=== PATIENT | female | born 1945 | race African-American/Black ===

== ENCOUNTER 2020-01-11 23:30 | Inpatient (IN) | payer OTHER ==
[2020-01-12 00:35] VITALS: BP 192/76
[2020-01-12] MEDS ORDERED: LOSARTAN POTASS50 MG PO (00:44)
[2020-01-12] MEDS ORDERED: CIPRO500 M1 PO (00:46)
--- NOTE | 2020-01-12 02:31 | NUR ---
Patient admitted from [facility] ED by EMS tian. Patient presented to [facility] ED by PD due to trespassing on property. Per medical record: Patient lost her home in 09/2019 due to forclosure. Patient has been squatting in the home since. Home was sold and patient had to be removed several times from the home. Patient originally was entering the home with [place]. [place] locks were changed. Patient arrived the next day and entered by garage doorkeeper. PD has been involved multiple times in removing her from the property. Patient did become verbally/physically aggressive with the homeowner when asked to leave. Patient is reporting depression. Patient having delusional ideation that she remains living at this time. Patient has been residing at a hotel and using a rental car for transportation. Patient has recently been asking strangers for rides and walking to her old home not dressed appropriately for weather. Son currently lives in [place] and is working on obtaining DPOA for patient. Son did sent an affidavit of his concerns. Son reports patient received the diagnosis of paranoid schizophrenia 8 years ago. Patient was diagnosed with a DVT to left lower extremity in Dec 2019 and was also sent to [facility] on a 96 hour hold. Patient irritable and agitated upon arrival. Resistant to admission. Alert and oriented to person. Patient diagnosed with a UTI and currently receives PO abx tx. Patient did inquire if she was admitted to be evaluated to see if she was "competent". Patient notified that was up to the doctors. Patient has perplexed and suspicious look. Denies pain or discomfort. Denies SI/HI/AH/VH. Denies depression. Reports anxiety because of being in the hospital and not at home. Would not rate anxiety. When asked where her home was, she did state that she is currently living in a hotel. Patient brought several personal belongings with her and is upset she is not able to keep them all in her room. Repetitive, disorganized thoughts and flight of ideas. Difficulty focusing on one task or subject. Admission orders obtained from Dr. Constantino. ALEJANDRA Moyer, evaluated patient and placed orders and testing due to past dx of DVT and some records obtained of recent CT of the head. Patient resting quietly in bed at this time.
[2020-01-12 08:16] VITALS: BP 153/79
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
--- NOTE | 2020-01-12 12:10 | NUR ---
Up ambulating in unit without s/o distress. Alert and orientated to person, time but not to place. Completed screening for MRI but repeatedly asked why she had to have another xray of her head since one was done yesterday. Requesting additional information and to talk with doctor to discuss why MRI needed to be done. ALEJANDRA Moyer paged and discussed with Dr. Constantino. Dr. Constantino states he will discuss with Dr. Bassett, MRI cancelled. Attempting to obtain records from [facility] regarding DVT. Ultrasound of lower extremities cancelled by Dr. Constantino. Breath sounds clear t/o, bilaterally equal. Reg HR auscultated. Color pink with brisk capillary refill and palpable peripheral pulses. Independent with voiding. Hypoactive bowel sounds over soft, rounded abdomen. Regular, steady gait. 1220 Pt. informed of MRI and ultrasound being cancelled. Repeatedly asking why she is here. States that she does not think she is incompetent. States she feels like she is a prisoner. I stated that she is here voluntarily and she responded that she did come here on her own. After multiple attempts she was able to state that she did enter into her house (with new owners) with her keys once. Dr. Constantino notified that she wanted to speak with him r/t voluntary admission.
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
[2020-01-12 19:31] VITALS: BP 153/56
[2020-01-13 00:08] LABS: GLYCOHEMOGLOBIN (HGB A1C) 7.2 % (4.8-5.6)
--- NOTE | 2020-01-13 00:42 | NUR ---
Care assumed of patient at 1915: Patient sleeping in bed at start of shift. Patient easily aroused to voice. Patient alert and oriented to person and place. Patient disoriented to time and situation. Patient has suspicious, perplexed look. Calm, cooperative. Patient having several complaints about water. Reporting that she can't have ice, she doesn't like the cup, she doesn't like the way it tastes. Reports that she needs her 4 oz bottles from home because she drinks 2 in the morning and 2 in the afternoon. Some difficulty focusing during assessment. Patient remembers that she does have a UTI and needs to increase fluid intake. Continues on PO abx tx. No s/s of adverse effects noted at this time. Denies SI/HI/AH/VH. Patient did not speak about her house or current homeless status. Patient has not asked when she will be able to go home. No agitation or aggression observed. No irritability observed. Denies depression and anxiety. Denies pain or discomfort. Patient up isa, steady gait, good balance. No obvious delusional or paranoia behaviors. Patient isolated self to her room this evening. Declined to join peers in day room for socialization and snack. Took HS medication whole without difficulty. Patient has been sleeping most of the shift thus far.
[2020-01-13 09:18] VITALS: BP 135/76
--- NOTE | 2020-01-13 11:07 | NUR ---
AMY spoke with Liza Romero [phone] order appointed attonrney for the guardianship. Amy provided a brief update and requested the paperwork for the court order via email. Amy provided Liza with the pt code.
--- NOTE | 2020-01-13 11:48 | NUR ---
HEAVY DUTY MECHANIC met with Nora to complete recreational assessment. Patient was fixated on conversation with psyhiatrist that took place right before this interaction. Pt became defensive and accusatory of HEAVY DUTY MECHANIC regarding her score on her SLUMS and potential dementia diagnosis. Assessment was not completed.
[2020-01-13 12:59] VITALS: BP 135/76
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
--- NOTE | 2020-01-13 15:46 | NUR ---
ASSUMED CARE AT 0700 THIS MORNING. PT. UP, DRESSED AND ON THE UNIT FOR BREAKFAST. SHE TOOK HER MEDICATIONS WITHOUT DIFFICULTIES. SHE IS PLEASANT AND COOPERATIVE WITH STAFF. AFTER LUNCH SHE WAS STANDING AT THE END OF ONE HALLWAY. SHE STATED THAT A DARK SKINNED LADY TOLD HER THEY WERE GOING TO TALK TO HER. SHE HAD NOT SEEN THIS WOMAN SINCE THAT TIME AND WAS CONFUSED TO WHERE TO LOOK FOR HER. WHEN INFORMED THAT SHE DOES NOT NEED TO STAND AT THE END OF THE ARGUETA WAITING AND STAFF WOULD LET HER KNOW IF SOMEONE COMES TO SEE HER. SHE WAS EXCEPTING OF THIS. DENIES SI/HI OR AVH TODAY.
[2020-01-13 15:50] LABS: FOLIC ACID 17.3 ng/mL (8.6-58.9)
--- NOTE | 2020-01-13 16:11 | NUR ---
SW verified with pt's son that pt's items such as her purse were at the hospital; he was concerned she had left everything in her rental care. SW team will continue to follow pt during her stay on this unit.
[2020-01-13 21:00] VITALS: BP 130/44
--- NOTE | 2020-01-14 00:25 | NUR ---
Assumed care of patient this pm shift. Patient was in her room resting when I arrived with her medications. Patient is in good spirits but questions when she might be able to go home and how long the stay will be. Patients affect is blunted. Patient denies hi/si. Patient denies pain. Patient is easy to redirect. Patient is compliant with cares and non-aggressive. Patients assessment shows clear breath sounds, active bowel sounds, and s1 s2 heard with auscultation. Patient takes medications whole. Patient ambulates without assistance. Vital signs are stable. We will continue to monitor.
[2020-01-14 08:37] VITALS: BP 141/63
--- NOTE | 2020-01-14 11:45 | NUR ---
Ambulating in unit without s/o distress. Alert and orientated to person and place. States she wants to get out of here richard. Asks alot of questions. Able to recognize meds. Denies SI/HI. Breath sounds clear t/o, bilaterally equal. Reg HR auscultated. Color pink with brisk capillary refill and palpable peripheral pulses. Voiding independenly. Active bowel sounds over soft, rounded abdomen. Reports she had a BM this AM. Reg, steady gait. Testing done by OT after breakfast. Given a copy of her Vitamen D results per her request. Sitting at table without s/o distress.
--- NOTE | 2020-01-14 16:04 | NUR ---
Yesterday pt met with her court appointed manager e learning in the group room. SW sent an email to pt's manager e learning Alex Arboleda that the munitions factory worker faxed the guardianship letter from the doctor this morning. Pt's psych doctor mentioned that pt said she has bills in her locker she needs to mail off. SW asked the REEL TENDER's to review her locker and see if there are bills. SW team will continue to follow pt during her stay on this unit.
[2020-01-14 20:00] VITALS: BP 141/57
[2020-01-14 21:59] VITALS: BP 141/57
--- NOTE | 2020-01-15 00:29 | NUR ---
1929 RESUMMED CARE FROM DAY SHIFT, PATIENT IN ROOM LYING QUIET IN BED. PATIENT WOULD NOT TAKE HER ELIQUIS STATING SHE DID NOT NEED THIS MEDICATION. PATIENT BELIEVES SHE IS BEING HELD HERE AGAINST HER WILL AND WANTS TO LEAVE. PATIENT DENIES SI/HI/AH/VH AT PRESENT, PATIENT IS CONFUSED AND I LET DR ELIZALDE KNOW PATIENT REFUSES THE ELIQUIS. PATIENT QUIET CALM WILL CONTINUE TO MONITOR PATIENT FOR SAFETY AND BEHAVIORS.
[2020-01-15 09:31] VITALS: BP 134/65
--- NOTE | 2020-01-15 11:30 | NUR ---
Pleasant, firm about not waanting the Memantine morning med as "it might affect her brain and wanted to consult her Primary Care Doctor before taking it." She has been alert and cooperative otherwise. She mostly keeps to herself without initiating conversation with her unit peers. She is neat and well kempt. Her main focus is getting out of this facility to have her freedom back so she can pay her bills.
[2020-01-15 15:56] VITALS: BP 134/65
--- NOTE | 2020-01-15 16:34 | NUR ---
Nora's son from [place] called and spoke with this nurse while she was in a morning group. He was updated on the morning team meeting and Nora's refusal to take the Memantine this AM. Her son was given the suggestion to talk with the Government Affairs Director and Doctor about when to discuss guardianship proceedings. Son says he plans to call her during visiting hour this afternoon.
[2020-01-15 21:33] VITALS: BP 135/45
[2020-01-15 22:33] VITALS: BP 135/45
--- NOTE | 2020-01-16 01:17 | NUR ---
Pt has been in bed since start of shift. Respirations even and non-labored during first visual assessment. At approx 2100 pt refused to take Eliquis but did take other pill. Pt. took pill whole with thin liquids. No choking or coughing noted. Pt. cooperative with assessment and voices no complaints of pain and no s/s of pain noted.
[2020-01-16 09:06] VITALS: BP 142/65
[2020-01-16 10:02] VITALS: BP 142/65
--- NOTE | 2020-01-16 11:33 | NUR ---
1035 RESUMMED CARE FROM OVERNIGHT SHIFT THIS AM, PATIENT IN DAY ROOM TALKING WITH ANOTHER PATIENT. PATIENT ATE BREAKFAST AND WAS GIVING ME A HARD TIME ABOUT TAKING SOME OF HER MEDICATION. TAO THE APPLICATION SYSTEMS ENGINEER TALKED WITH PATIENT AND ASKED ME TO PRINT LITATURE ABOUT THE MEDICATIONS. AFTER PATIENT READ THE INFORMATION SHE TOOK HER BLOOD THINNER AND MENAMTINE. PATIENT IS VERY CONFUSED AT TIMES AND INSIST SHE NEEDS TO LEAVE HERE SO SHE CAN PAY HER BILLS. PATIENT IS LESS ISOLATIVE AND INTERACTS WITH ONE PATIENT. WILL CONTINUE TO MONITOR PATIENT FOR SAFETY.
[2020-01-16 19:26] VITALS: BP 152/73
[2020-01-16 20:40] VITALS: BP 152/73
--- NOTE | 2020-01-17 05:15 | NUR ---
At start of shift patient was already in bed with lights off and door shut. Upon assessment and with administration of medications pt. became argumentative about her care and the medications that are ordered for her. Education done regarding Eliquis and Cipro. Pt. acknowledged understanding and took pills by mouth whole with thin liquids. No choking or coughing noted with thin liquids.
--- NOTE | 2020-01-17 05:18 | NUR ---
Pt. slept quietly through the night without incident and no c/o pain and no signs or symptoms of distress noted. Respirations even and non-labored.
[2020-01-17 06:24] VITALS: BP 120/55
--- NOTE | 2020-01-17 18:15 | NUR ---
PATIENT OUT TO DINING ROOM INTERMITTENTLY THIS SHIFT. INTERACTED WITH OTHER PATIENTS AT MEAL TIMES. SPENDS ALONE TIME IN ROOM FREQUENTLY IN BETWEEN MEALS. PARTICIPATED IN GROUP. REFUSED MEMANTINE THIS MORNING. STATED THAT SHE WANTS A SECOND OPINION FROM A PRIVATE DRJosé WHEN SHE DISCHARGES. STATES THAT SHE DOES NOT BELIEVE SHE HAS MEMORY ISSUES. TOOK ALL OTHER MEDS AFTER EDUCATION PROVIDED. SUSPICIOUS OF STAFF WHEN GIVING MEDS, SHOWED PATIENT THAT MEDICATION REFUSED WAS NOT IN HER MED CUP. AOX3, FORGETFUL. UP WITH A STEADY BALANCED GAIT.
[2020-01-17 19:36] VITALS: BP 129/55
--- NOTE | 2020-01-18 03:49 | NUR ---
ASSUMED PT CARE AROUND 1914. AXOX3. VSS. NO S/S ACUTE DISTRESS NOTED OR REPORTED AT THIS TIME. WILL CONT TO MONITOR FOR ANY CHANGES IN CONDITION.
[2020-01-18 07:57] VITALS: BP 148/52
--- NOTE | 2020-01-18 09:47 | NUR ---
0700 ASSUMED CARE OF PATIENT. PATIENT SITTING AT TABLE DENIES NEEDS AT THIS TIME. 0730 NO C/O PAIN DENIES SI/HI/AH/VH, NO ANXIETY OR DEPRESSION, PATIENT IS CALM AND COOPERATIVE. GOAL FOR TODAY IS TO DO WHAT SHE NEEDS TO TO GET RELEASED. PATIENTS CONCERN IS TO GET DISCHARGED. PATIENT REFUSES HER MEDICATION (MEMANTINE) AND REQUESTS A SECOND OPINON BEFORE SHE TAKES THAT MED. DR WESLEY NOTIFIED. WILL CONTINE TO OBSERVE FOR BEHAVIORS.
[2020-01-18 19:48] VITALS: BP 129/97
[2020-01-18 23:09] LABS: SYPHILIS AB Non Reactive (Non Reactive)
--- NOTE | 2020-01-19 01:26 | NUR ---
Care assumed of patient at 1915: Patient laying in bed at start of shift. Patient easily aroused. Patient alert and oriented to person and place. Patient confused and forgetful. Patient asking to go home and that she is leaving tomorrow. Patient cooperative with nursing assessment. Denies pain or discomfort. Patient denies SI/HI/AH/VH. Patient paranoid about her room door being cracked open. Required education on need of being able to monitor her throughout the night. No aggression observed. Patient has 1+ pitting edema to bilateral lower extremities. Patient told nurse about how she has a DVT "in the muscle tissue, which is a weird place for it to be, but I will take my medications". Patient took HS Eliquis without difficulty. Declined HS snack. Patient has been restless with broken sleep noted. Will continue to monitor.
[2020-01-19 08:53] VITALS: BP 157/64
[2020-01-19 09:31] VITALS: BP 157/64
--- NOTE | 2020-01-19 10:13 | NUR ---
1013 RESUMMED CARE FROM OVERNIGHT SHIFT THIS AM, PATIENT IN ROOM LYING QUIET IN BED. I TOLD PATIENT THAT IT WILL BE BREAKFAST SHORTLY AND TO GET UP AND DO HYGIENE. PATIENT ATE BREAKFAST TOOK MEDICATION WITHOUT INCIDENCE; PATIENT BOWEL SOUNDS PRESENT ABDOMEN SOFT AND ROUND. PATIENT LUNGS CLEAR DENIES SI/HI/AH/VH AT PREESENT. PATIENT STATES SHE DOES NOT WANT TO GO TO A SHELTER. SHE STATES SHE IS ABLE TO TAKE CARE OF HERSELF AND WANTS TO TALK WITH PARKING METER ATTENDANT. PATIENT CALM COOPERATIVE WILL CONTINUE MONITOR PATIENT FOR BEHAVIORS AND SAFETY.
--- NOTE | 2020-01-19 11:40 | NUR ---
Date of Admission: 01/11/20 Date of Activity Therapy Assessment: 01/14/20 Activity Goal: Reality Orientation, Impulse Control Initial Goal: 2 Group activities/day Weekly progress towards goal: Did not achieve goals Group participation level: Improving Behaviors observed: Patient very reluctant to participate in groups at beginning of stay, which has since improved slightly though patient is still not achieving goal as she is unaccepting of diagnosis. Patient is reserved and guarded in social interactions. Plan: No change towards goal
--- NOTE | 2020-01-19 12:41 | NUR ---
Sw completed a chart review and have not been able to verify what date is the hearing for guardianship
--- NOTE | 2020-01-19 12:44 | NUR ---
JUAN RAMON called Liza zimmerman left a VM requesting a date for the guardianship hearing.
[2020-01-19 19:46] VITALS: BP 147/47
--- NOTE | 2020-01-19 21:36 | NUR ---
Care assumed of patient at 1915: Patient laying in bed at start of shift. Patient alert and oriented to person and place. Patient confused and forgetful. Patient labile. Originally calm, pleasant and cooperative until current situation of admission was discussed. Patient then became irritable, agitated and angry. Patient stated that we are keeping her against her will and she has never been in the hospital for this long of a period. States that she needs to return to home because she has business to care for. States that she is able to make her own decisions and doctors are making up diagnoses to keep her here. Patient denies SI/HI/AH/VH. No physical aggression shown. Patient did tell nurse to get out because she is not a doctor. Patient encouraged to speak with the doctor and adoption social worker regarding her concerns tomorrow. Patient declined HS snack. Isolated self to her room this shift. Patient took HS medication without difficulty this shift. Patient denies pain or discomfort. 1+ pitting edema present to bilateral lower extremities. Patient resting quietly in bed at this time.
[2020-01-20 08:42] VITALS: BP 121/59
--- NOTE | 2020-01-20 11:06 | NUR ---
JUAN RAMON spoke with Liza Romero and JUAN RAMON reported that pt is having some difficulties that could be the result of being too long on inpt psych and that Liza offered to send an email to the court and request expediated dates. She also stated that there would be a server engineer to come to see pt this week to serve her the legal documents about her guardianship.
--- NOTE | 2020-01-20 11:19 | NUR ---
Nutrition: pt admitted with AMS and seen due to LOS. PMH: HTN, DVT, schizophrenia, dementia, No hx DM however A1C 7.2. BG 101-132. On carb controlled diet. Pt eating 100% meals. Pt unsure of her UBW but thinks she has been gaining weight. Noted pt has been homeless since october-home sold at [employer]. Was disruptive and aggressive this am requiring IM Noelle. Pt was very preoccupied with incident this am. Likes all the meals here. On vitamin D, B12 supplementation. Vitamin D level-8.6. CM working on discharge location. Not appropriate for DM education at present but did offer basic tips. Place as low nutrition risk.
--- NOTE | 2020-01-20 11:33 | NUR ---
GUARDED AND DEFENSIVE AT TIMES DURING WITH THIS RN. FOCUSED ON INCIDENT THIS AM WHERE SHE BECAME AGITATED THAT SHE WAS ASKED TO WAIT TO SHOWER -ARGUMENTATIVE WITH NURSING STAFF DESPITE BEING REDIRECTED TO DIFFERENT TOPIC-SOME MILD DELUSIONS O0F PERSECUTION STATING "THAT LADY TOLD ME SHE SHOWERED IN THE MORNING" IS VISIBLE AT MEALS AND ATTENDS GROUP BUT MINIMAL OBSERVED PARTICIPATION OR SOCIALIZATION WITH PEER GROUP. GAIT IS STEADY WITHOUT ASSISITVE DEVICES. DENIES C/O PAIN/DISCOMFORT.DYSPHORIC MOOD. FOCUSED ON BEING HERE AT HOSPITAL "TO SEE IF I'M COMPETENT-NO OTHER REASON-I DON'T HAVE TROUBLE LIKE THESE OTHER PEOPLE"VS STABLE. APPETITE GOOD. DENIES SI/SH/HI
--- NOTE | 2020-01-20 17:35 | NUR ---
UPON ARRIVAL TO FLOOR NOTED TO SMELL STRONGLY OF URINE-CLOTHING WET FRO MMIDCHEST TO KNEES WITH URINE-REFUSING TO CHANGE CLOTHING STATING "I WANT THOSE"-DR ELIZALDE CONTACTED,SECURITY CONTACTED-[facility] 15MG GIVEN IM IN LVG WITH ASSIST OF SECURITY AND 3 STAFF. DURING PERINEAL CARE SKIN ASSESSMENT COMPLETED-NO OPEN AREAS NOTED PURPLE COLORED RASH /BUMPS TO INNER THIGHS BILAT. NO REDNESS/IRRITATION OR OPEN AREAS NOTED. PER DR ELIZALDE PT NOT OF CAPACITY TO SIGN CONSENT TO TREAT D/T SEVERE COGNITIVE DEFECITS-MD INDICATING DOES NOT WANT 96 HOUR HOLD AND TO ADMIT TO UNIT VIA [facility]. DR ELIZALDE AND THIS CASING TESTER CONTACTED NUMBER IDENTIFIED BY ER GUARDIAN [id number] ANSWER BUT ANSWERING MACHINE IDENTIFIES OFFICE OF ELISEO HERNANDEZ STAFF ENGINEER. MESSAGE LEFT TO RETURN CALL LUIZ. PT UNABLE TO ANSWER MAJORITY OF QUESTIONS DURING ADMIT INTERVIEW-SEXUALLY PREOCCUPIED TELLING PRODUCT SAFETY OFFICER THAT HE WANTED TO PUT A BABY IN HER AND WHEN ASKED ABOUT ANY PREVIOUS MEDICAL CARE OR DURGERIES STATES "THEY CUT MY SUSANA AND BALLS OFF" THEN PROCEDED TO LAUGH LOUDLY. APPROPRIATE FOR
--- NOTE | 2020-01-20 17:57 | NUR ---
SW received an email from pt's son asking for help with placement. JUAN RAMON told him she will provide him with a listing; she just needs to know what area he would like pt to reside in. She also told him that the court is needing more information from him in order to set a court date. SW team will continue to follow pt during her stay on this unit.
[2020-01-20 19:54] VITALS: BP 145/61
[2020-01-20 21:43] VITALS: BP 145/61
--- NOTE | 2020-01-20 23:04 | NUR ---
2209 RESUMMED CARE FROM DAY SHIFT, PATIENT IN ROOM LYING DOWN QUIET. WHEN A NEW ADMIT WAS PUT INTO PATIENT'S ROOM SHE BECAME DISGRUNTLE. SHE ASKED IF SHE COULD HAVE A ROOM WITHOUT A ROOMMATE WE MOVED PATIENT TO 525A. WE TOLD PATIENT THAT WE COULD ACCOMMODATE HER BECAUSE THERE WAS ONLY ONE BED IN THE ROOM. PATIENT TOOK MEDICATION WITHOUT INCIDENCE, PATIENT ABDOMEN SOFT ROUND BOWEL SOUNDS PRESENT LUNGS CLEAR. PATIENT STATES SHE DOES NOT WANT TO GO TO A LONG TERM; SHE STATES SHE CAN CARE FOR HERSELF. PATIENT NOT RECEPTIVE WHEN YOU DISCUSS THE REASON WHY SHE HAS TO HAVE SOMEONE HELP HER WITH DAILY AFFAIRS. WILL CONTINUE TO MONITOR PATIENT FOR BEHAVIOR AND SAFETY.
[2020-01-21 06:14] LABS: HEMATOCRIT 40.8 % (37.0-47.0); HEMOGLOBIN 13.2 gm/dL (12.0-15.0); MCHC 32.4 g/dL (28.0-37.0); MCV 89.5 fL (80.0-100.0); RBC 4.56 mil/uL (4.20-5.00); RDW 13.8 % (10.5-14.5); WBC 6.7 thou/uL (4.0-11.0)
[2020-01-21 06:46] LABS: CALCIUM 8.9 mg/dL (8.5-10.1); CREATININE 0.8 mg/dL (0.6-1.0); MAGNESIUM 2.2 mg/dL (1.8-2.4); POTASSIUM 4.3 mmol/L (3.5-5.1)
[2020-01-21 07:52] VITALS: BP 132/48
--- NOTE | 2020-01-21 12:22 | NUR ---
Sitting in room by herself with lights off. Alert and orientated X3. Wants to be discharged. Denies SI/HI. Ambulates with regular, steady gait. Conversive and helpful with peers when in the dining room. Breath sounds clear t/o, bilaterally equal. Reg HR auscultated. Color pink with brisk capillary refill and palpable peripheral pulses. +1 nonpitting edema in lower extremitites. Independent with voiding. States she had bowel movement today. Active bowel sounds over soft, rounded abdomen.
--- NOTE | 2020-01-21 13:07 | NUR ---
JUAN RAMON received a call from pt's son's lawyer real estate Alex asking about the process to have pt served guardianship docs. JUAN RAMON advised that he can have the claims processor contact SW so tthat she knows when he will arrive and can direct him to Leobardo Lacey. After tower observer has visited with Leobardo Lacey, then he can come serve pt. Alex said the claims processor's name is Solan Martinez and will call JUAN RAMON when he has finished getting him appointed as the claims processor. JUAN RAMON team will continue to follow pt during her stay on this unit.
[2020-01-21 19:34] VITALS: BP 136/55
--- NOTE | 2020-01-21 21:39 | NUR ---
1900 ASSUMED CARE OF PT AFTER REPORT 2028 ASSESSMENT COMPLETED, SEE CHARTING, PT ANSWERING QUESTIONS APPROPRIATEL AFFECT APPROPRIATE TO MOOD, PT STATES SHE WOULD LIKE TO SLEEP. DENIES SI/HI OR HALLUCINATIONS, WILL CONTINUE WITH FREQUENT MONITORING
[2020-01-22 07:42] VITALS: BP 146/63
--- NOTE | 2020-01-22 11:01 | NUR ---
0700 assumed care of patient, patient sitting at table at that time. 0820 PATIENT EATING BREAKFAST AT THAT TIME. PATIENT CALM AND PLEASANT DENIES PAIN, DENIES SI/HI/AH/VH, DENIES ANXIETY AND DEPRESSION. PATIENTS GOAL IS TO EXERCISE AND GO HOME AND USE HER TREADMIL. NO CONCERNS VOICED. PATIENT IS QUIETLY SITTING AT TABLE. DNIES NEEDS.
--- NOTE | 2020-01-22 15:09 | NUR ---
5315 - 8750 The morning group was lead by Celsa in dietary. Nora attended and was an active participatant in group.
[2020-01-22 19:59] VITALS: BP 123/52
[2020-01-22 23:28] VITALS: BP 123/52
--- NOTE | 2020-01-23 01:35 | NUR ---
Pt was already in bed at start of shift. Pt. took evening meds without complaint, without arguing, without questioning and without any swallowing difficulty. Pt. took meds whole with thin liquids. Pt denies any pain or distress and no signs or symptoms of either noted.
--- NOTE | 2020-01-23 04:01 | NUR ---
Patient reported to the nurses station at approximately 0400. Patient asked nurse if her discharge papers were ready. Nurse told patient she would need to speak with the doctor when he rounds later today. Re-oriented to current time. Blunted, perplexed affect. Patient then stating "well that is not what they told me". Patient then went back to her room with no further issue.
[2020-01-23 08:03] VITALS: BP 126/59
--- NOTE | 2020-01-23 14:22 | NUR ---
Up ambulating in unit without s/o distress. Focused on being independent and wanting to get discharged. Reg, steady gait. Alert and orientated X3, helpful with peers, conversant in the day room. Denies SI/HI. Breath sounds clear t/o, bilaterally equal. Color pink with brisk capillary refill and palpable peripheral pulses. +1 nonpitting edema in lower legs. Independent with voiding. Active bowel sounds over soft abdomen. States last BM was yesterday. Participating in groups. Compliant with meds, asking appropriate questions.
[2020-01-23 20:05] VITALS: BP 175/95
--- NOTE | 2020-01-23 21:10 | NUR ---
Care of patient assumed at 1915: Patient resting in her bed at start of shift. Patient approached in room for nursing assessment. Patient alert and oriented x3, disoriented on current situation. Some irritability noted but was fairly cooperative. Blunted affect, labile mood. Patient refused HS medication. Patient states that she has had 2 episodes of loose stools, one of which was incontinent and she had to clean herself up. Patient states that she is not wanting to drink anymore water for a fear of having another loose stool. Stool was not observed. Patient stated that she never refuses medications but she feels like one dose of Eliquis will not hurt her. Despite all education provided regarding dehydration with loose stools, she continues to refuse. Nurse left room. Approximately 1 hour later, patient came out of room, angry, moving briskly to the nurses station, pointing, stating she was taking a mental picture of all nurses faces, stating "call the guards, I'm not afraid of you!", stating "it is illegal to experiment on people!". Patient marched back to her room and is currently seated on bed.
[2020-01-24 08:51] VITALS: BP 133/68
[2020-01-24 13:43] VITALS: BP 133/68
--- NOTE | 2020-01-24 16:44 | NUR ---
ASSUMED CARE AT 0700 THIS LANCE. PT. UP AMBULATING AROUND. SHE HAS BEEN PLEASANT AND COOPERATIVE WITH STAFF/PEERS. SHE TOOK ALL HER MEDICATIONS WITHOUT DIFFICULTIES. NO PROBLEMS NOTED.
[2020-01-24 19:30] VITALS: BP 123/54
--- NOTE | 2020-01-25 04:59 | NUR ---
ASSUMED CAER OF PT AT 1900HRS. ASSESSMENTS CHARTED. PT IS UP AD NATALIYA WITH A SLOW BUT STEADY GAIT. PT WAS ABLE TO GET COMFORTABLE AND SLEEP PART OF THE SHIFT. PT WOKE UP AROUND 0330HRS AND WAS DELUSIONAL, THINKING THE NURSE TOLD HER THAT IT WAS OK FOR HER TO GO HOME AT THIS HOUR. PT DENIED SI/HI/AH/VH. VSS AND NO S/S OF ACUTE DISTRESS. WILL CONTINUE TO MONITOR.
[2020-01-25 07:59] VITALS: BP 135/61
--- NOTE | 2020-01-25 09:19 | NUR ---
SW completed chart review and pt seems to be making gains. Still pending guardianship with her son.
--- NOTE | 2020-01-25 10:47 | NUR ---
0700 ASSUMED CARE OF PATIENT. PATIENT SITTING IN DAYROOM WATCHING TV. DENIES NEEDS AT THAT TIME. PATIENT ATENDS GROUP THIS AM
--- NOTE | 2020-01-25 15:46 | NUR ---
JUAN RAMON followed up with pt's son glove operator Alex and asked if the hearing date had been set yet via email. SW team will continue to follow pt during her stay on this unit.
--- NOTE | 2020-01-25 16:31 | NUR ---
PATIENT BLOOD SUGAR WAS 67 APPLE JUICE GIVEN AND BS RECHECKED WITH BS 66. PATIENT IS ASYMPTOMATIC AT THIS TIME. WILL RECHECK AFTER DINNER.
--- NOTE | 2020-01-25 18:25 | NUR ---
1745 BL RECHECKED WITH 77 RESULT. PT IS ASYMPTOMATIC AT THIS TIME WILL REPORT TO ONCOMING SHIFT AND CONTINUE TO WATCH.
[2020-01-25 19:30] VITALS: BP 141/65
--- NOTE | 2020-01-26 04:51 | NUR ---
Assumed care of pt @ 1900. Pt calm et cooperative this shift. Took medications whole without difficulty. Ambulates the halls ad isa with steady gait. Isolates in room most of shift. Denies SI/HI @ present time. VSWNL. Health assessment with no abnormalities noted at present time. Currently resting in bed with eyes closed. Will continue to monitor per protocol.
[2020-01-26 09:10] VITALS: BP 126/72
--- NOTE | 2020-01-26 11:53 | NUR ---
Up ambulating t/o unit with regular, steady gait. No s/o distress. Alert and orientated X4. Wants to know why she can't go home. Denies SI/HI. Dr. Constantino aware that she wants to talk to him about discharge. Calm, cooperative, compliant. Breath sounds clear t/o, bilaterally equal. Reg HR auscultated. Color pink with brisk capillary refill and palpable peripheral pulses. Fingertips slightly dusky and cool with brisk capillary refill. No edema noted. Independent with voiding. Active bowel sounds over soft, rounded abdomen. BG 82, Metformin dced per order.
--- NOTE | 2020-01-26 12:15 | NUR ---
JUAN RAMON and Dr. Constantino spoke with pt and explained that her court date is likely not until March, and that the hospital will need to d/c her before that. JUAN RAMON and Dr. Constantino expressed the importance that pt stay away from the house she formerly lived in. She initially said she still has a herrera so she still has rights. Then she said she will go to the post office and ask for her mail. SW offered to have her fill out a change of address via internet while she is on the unit. Pt did not identify if that is something she wants to do; she instead kept talking about going to the post office. JUAN RAMON, Dr. Constantino, and pt contacted and provided an update. Dr. Constantino suggested respite for pt. said he will look into respite care for pt and get back with JUAN RAMON. SW team will continue to follow pt during her stay on this unit.
[2020-01-26 19:16] VITALS: BP 134/50
[2020-01-26 23:16] VITALS: BP 134/50
--- NOTE | 2020-01-27 01:44 | NUR ---
Assumed care at change of shift. Pt was already in bed for the night. She was cooperative with assessment but was irritated when lights were turned on. Pt. took medications whole with thin liquids. No choking or coughing noted after patient swallowed medication. 1+ BLE edema noted and skin is shiny. She denies SI/HI/AH/VH. Pt is delusional in that she thinks she is supposed to be discharging tomorrow. Pt. was informed that there was no pending dismissal. She became angry but was not aggressive. Affect is flat and irritable. Patient amublates ad isa with steady gait. She denies pain and no signs or symptoms of pain or distress noted. Education done regarding what medication that was scheduled. She was cooperative after education but refused to take med prior to education.
--- NOTE | 2020-01-27 11:08 | NUR ---
Nutrition: pt seen per followup. Eating 100% of meals on carb controlled diet. Concerned she is eating too much. Wants to lose weight. Weights stable at 175# over admit but reports weight fluctuations from 160-175# typically. BG 77-111 with A1C of 7.2. No prior hx of DM. Noted Metformin has D/C'ed with good BG control. RD reviewed basic concepts of DM diet with pt again and will decrease calorie level to 1600 ADA as she is wanting to eat less. Family looking into respite care-pt wishing to D/C to hotel and is still focused on past home that was sold in october. Living arrangements could be barrier to eating healthy although pt voiced basic understanding of healthy diet and things she likes to eat at home. Low nutrition risk
[2020-01-27 13:14] VITALS: BP 127/67
[2020-01-27 15:26] VITALS: BP 127/67
[2020-01-27 20:11] VITALS: BP 154/66
[2020-01-27 21:00] VITALS: BP 154/66
--- NOTE | 2020-01-28 00:10 | NUR ---
Assumed care of patient this pm shift. Patient in good spirits, calm and cooperative. Patient states that she does not know why she is here since she does not have any mental health problems. Patients affect is normal. Patient denies hi/si. No abnormal behaviors. Patient takes medications whole. Patient ambulates without assistance. Patients appearance is neat and clean. Patients assessment shows clear breath sounds, active bowel sounds, and s1 s2 heard with auscultation. We will continue to monitor.
[2020-01-28 08:59] VITALS: BP 117/66
[2020-01-28 13:41] VITALS: BP 117/66
--- NOTE | 2020-01-28 13:50 | NUR ---
PATIENT HAS BEEN UP AND OUT ON THE UNIT, AMBULATE WITH SLOW STEADY GAIT. PATIENT TOOK ALL MORNING MEDICATION WHOLE WITHOUT DIFFICULTY. PATIENT IS EATING MEALS, AND DRINKING FLUID WELL. PATIENT DENIES SUICIDAL/HOMICIDAL IDEATION. PATIENT STATES "I HAVE NEVER BEEN DEPRESSED IN MY LIFE", SHE DENIES ANXIETY. "I JUST WANT TO GO HOME, I HAVE A FEW BILLS TO PAY". AFFECT IS BRIGHT, MOOD IS HAPPY. NO SIGN OF ACUTE DISTRESS NOTED AT THIS TIME. PATIENT ATTEMPTING TO CARETAKE FOR PEERS, REDIRECTS EASILY, WILL MONITOR FOR SAFETY.
[2020-01-28 20:28] VITALS: BP 147/71
--- NOTE | 2020-01-28 20:58 | NUR ---
Care assumed of patient at 1915: Patient laying in bed at start of shift. Patient alert and oriented to person and place. Disoriented on current time and situation. Patient confused and forgetful at times. Patient fairly calm, pleasant and cooperative. States that she does not need to be here and it is against the law, she will be hiring a command and control specialist. Patient resistive to nursing assessment, vital signs and taking medication but ultimately complied. Patient states that she can drive on her own, go to her own doctor and take her own medications. States that she does not need to be in the hospital for that to be done. Denies pain and discomfort. Given medication early so she could go to bed with minimal disruptions. Patient appreciative. Denies depression and anxiety. Denies SI/HI/AH/VH. Patient declined HS snack. Resting quietly in bed at this time.
[2020-01-29 07:45] VITALS: BP 115/66
[2020-01-29 09:47] VITALS: BP 115/66
--- NOTE | 2020-01-29 12:37 | NUR ---
PATIENT HAS BEEN UP AND OUT ON THE UNIT, CALM, COOPERATIVE WITH CARE. PATIENT TOOK ALL MEDICATION WHOLE WITHOUT DIFFICULTY. SHE IS EATING MEALS, AND DRINKING FLUID WELL. PATIENT DENIES SUICIDAL/HOMICIDAL IDEATION. SHE DENIES AUDITORY/VISUAL HALLUCINATION. PATIENT DENIES DEPRESSION, "AM NOT DEPRESSED AT ALL, I JUST WANT TO GO HOME". AFFECT IS BLUNTED, MOOD IS CALM, HOPLESS, AND HELPLESS. PATIENT DENIES HAVING PHYSICAL PAIN, NO SIGN OF ACUTE DISTRESS NOTED AT THIS TIME, WILL MONITOR FOR SAFETY.
[2020-01-29 20:23] VITALS: BP 149/65
--- NOTE | 2020-01-29 21:56 | NUR ---
Care assumed of patient at 1915: Patient resting in bed at start of shift. Patient alert and oriented to person and place. Patient fairly pleasant and cooperative. Blunted affect. Denies pain or discomfort. Confused and forgetful. Denies SI/HI/AH/VH. No delusional or paranoia behaviors observed. Patient did ask if she could take both Eliquis doses in the morning instead of taking a dose at bedtime. Patient encouraged to speak with the doctor. Patient does like to retire to bed quite early and becomes agitated when fraternity house cook completes assessments. Patient reported that she understood staff was doing their job tonight. Denies anxiety and depression. Declined HS snack. Took HS medication whole without difficulty. Patient has been resting in bed with no issue or concern to report.
[2020-01-30 08:32] VITALS: BP 141/67
--- NOTE | 2020-01-30 10:17 | NUR ---
PLEASANT AND COOPERATIVE UPON INITAL APPROACH THIS AM-ATTENDING SCHEDULED GROUPS WITH GOOD LEVEL OF PARTICIPATION. DENIES SI/SH/HI. DOES REPORT LEFT ARM/SHOULDER PAIN BUT STATES "I'LL GO SEE THE DOCTOR ABOUT IT" WHEN ASKED TO MENTION TO HERE STATES "WELL I MAY BE LEAVING TODAY-THE DOCTOR TOLD ME I COULD GO HOME IN A COUPLE OF DAYS AND THAT WAS AT LEAST 2-3 DAYS AGO- SO IT COULD BE ANYTIME" . GAIT STEADY WITHOUT ASISSTIVE DEVICES. FULL RANGE AFFECT. SOCIAL WITH PEERS AND STAFF.
[2020-01-30 20:41] VITALS: BP 151/75
--- NOTE | 2020-01-31 02:16 | NUR ---
Patient ASSESSED AND IS ALERT X 4. SKIN WARM AND DRY. RESP EVEN AND UNLABORED. STAYS IN HER ROOM ALOT EXCEPT FOR MEALS AND THERAPY. CONT OF BOWEL AND BLADDER. UP AD NATALIYA IN ROOM AND HALLWAYS. NO BEHAVIORS THIS SHIFT. VERY COOPERATIVE SO FAR THIS SHIFT. TAKES MEDS WITHOUT PROBLEMS. DENIES ANY PAIN. NO SI/HI NOTED. IS ON A CARB CONTROL MEALS WITH BS DURING THE DAY. NO PARANOID THOUGHTS SEEN OR HEARD. SLEPT WELL LAST NIGHT. LUNGS CTA. HAD A BM ON THE 01/28. CONT PLAN OF CARE.
[2020-01-31 08:22] VITALS: BP 118/61
--- NOTE | 2020-01-31 09:59 | NUR ---
COOPERATIVE AND PLEASANT THIS AM-UP IN DAYROOM WITH PEERSAND OBSERVED TO BE SOCIAL AND HELPFUL WITH PEER SITTING AT TABLE WITH HER-ATTEMPTING TO ENCOURAGE HER TO EAT. DENIES SI/SH/HI. NO ACUTE ANXIETY NOTED OR REPORTED. CONVERSATION IS RELEVENT AND GOAL DIRECTED. REPORTS BEING HOPEFUL THAT SHE COULD DISCHARGE TODAY STATING "I'M READY" GAIT STEADY WITHOUT ASSISTIVE DEVICES. DENIES C/O PAIN/DISCOMFORT.
--- NOTE | 2020-01-31 16:44 | NUR ---
Date of Admission: 01/11/20 Date of Activity Therapy Assessment: 01/14/2020 Activity Goal:Reality orientation Initial Goal:two RT groups per day Weekly progress towards goal: Achieving Group participation level: Full Behaviors observed:Participation level increasing. Reserved but more social in groups. Plan: No change towards goal
[2020-01-31 19:29] VITALS: BP 124/45
--- NOTE | 2020-01-31 23:19 | NUR ---
PATIENT IN BED SINCE 1900. HER ROOM IS FEELING COLD AND REGISTERS AT 66 DEGREES. PATIENT'S SKIN IS WARM AND PATIENT HAS 4 BLANKETS ON. PATIENT WAS TOLD SHE NEEDS TO MOVE TO ANOTHER ROOM BY THIS NURSE AND SHE IS REFUSING. SHE STATES SHE DOES NOT WANT A ROOM MATE. LET HER KNOW THAT WE WILL BE MONITORING HER TEMPERTURE THRU THE NIGHT TO MAKE SURE SHE IS STAYING WARM. MAINTENANCE TICKET PLACED AND MAINTENANCE UNABLE TO FIX FAN TONIGHT. STATES ROOM NEEDS EMPTIED IN THE MORNING SO THEY CAN CLOSE OFF ROOM TO WORK ON. PATIENT VERY STATES SHE WANTS TO STAY IN ROOM BY SELF TONIGHT. WILL CONTINUE TO MONITOR. NO SIGNS OF FEVER, COUGH, RUNNY NOSE, ETC. CONTINUING TO MONITOR BODY TEMP FOR SAFETY.
[2020-02-01 08:46] VITALS: BP 156/68
--- NOTE | 2020-02-01 11:11 | NUR ---
Sleeping in bed without s/o distress. States she is anxious to go home and is praying that she will get discharge papers today. Alert and orientated X3. Denies SI/HI. Breath sounds clear t/o, bilaterally equal. Reg HR auscultated. Color pink with brisk capillary refill and palpable peripheral pulses. Independent with voiding. Active bowel sounds over soft, rounded abdomen. Regular, steady gait. No s/o distress.
--- NOTE | 2020-02-01 11:23 | NUR ---
JUAN RAMON contacted to see if he had anymore referrals to send for pt. She also reminded him that pt is due to d/c today; at the lastest tomorrow morning ifthere are no placement options. JUAN RAMON advised him and Maddy to identify a hotel for pt to go to. JUAN RAMON told him she will follow-up with all of the referrals she sent out and Saturday for pt. He also updated him that [facility] told JUAN RAMON on Saturday that they were not currently accepting admissions due to virus. JUAN RAMON contacted Brennen Rizo to follow up with Master as he told JUAN RAMON on Saturday he may do an assessment today for pt. JUAN RAMON lft a msg with the fire sprinkler designer asking for a return call for Master. JUAN RAMON team will continue to follow pt during her stay on this unit.
--- NOTE | 2020-02-01 13:52 | NUR ---
JUAN RAMON received a call from Barbra with [facility] asking for updates on pt. JUAN RAMON provided that. She asked JUAN RAMON to fax another referral as she only received 2 pages of the fax from JUAN RAMON last week. JUAN RAMON faxed a referral to [facility]. JUAN RAMON team will continue to follow pt during her stay.
--- NOTE | 2020-02-01 17:01 | NUR ---
JUAN RAMON spoke with Dot with [facility] who said that she would accept pt, but pt said she will not come. SW and pt spoke with Dot via phone and pt confirmed she is not going. SW and pt contacted and provided an update. He confirmed for pt that once the guardianship hearing occurs he will be seeking a locked unit for her as she is an elopement risk. JUAN RAMON advised pt to stay away from the home. Pt became upset and said she will. She asked for her credit card info, and was told that her sister has her purse, card, and checks at the request of . confirmed that was true. Pt said to that she plans to go to the hotel and then rent a car so she can find a place to live. JUAN RAMON explained that Dr. Constantino has advised for her not to drive due to her cognitive impairments. Pt again became upset and said there is nothing wrong with her. said he will call SW back and tell her if her sister Maddy will meet pt at the hospital with her things to transport her, or if SW should send her to the hotel in a taxi where they will pay for hotel stay. JUAN RAMON put a discharge time tentatively for 1300 on 02/01. JUAN RAMON provided an update to Dr. Constantino.
[2020-02-01 17:05] VITALS: BP 158/72
[2020-02-01 19:48] VITALS: BP 120/50
[2020-02-01 19:50] VITALS: BP 120/50
--- NOTE | 2020-02-02 00:55 | NUR ---
PATIENT IN ROOM ALL NIGHT. SHE IS A/0X3. PATIENT HAS BEEN CALM AND COOPERATIVE AND LOOKING FORWARD TO DC TODAY. SHE DENIES PAIN. SHE IS UP TO THE BATHROOM INDEPENDENTLY. HEAT IS WORKING IN HER ROOM TONIGHT. BED IN LOW POSITION. VSS WNL. ROUTINE ROUNDING TO CHECK FOR SAFETY ASSESSMENT.
[2020-02-02 07:48] VITALS: BP 136/67
--- NOTE | 2020-02-02 11:12 | NUR ---
JUAN RAMON D/C note JUAN RAMON spoke with who said the plan is for pt to discharge at 1300 with her sister Maddy. Maddy will then take her to [facility] to see the facility, and she may change her mind about going there once she sees she will have her own apartment. JUAN RAMON told she will only tell pt that she is discharging with Maddy at 1300; he agreed with that. JUAN RAMON provided an update to pt's medical staff and pt. JUAN RAMON contacted Maddy and explained the current discharge protocol. No other needs for JUAN RAMON team to address at this time.
[2020-02-02] MEDS ORDERED: ELIQUIS5 MG PO (11:29)
[2020-02-02] MEDS ORDERED: COZAAR 50 MG TA50 M1 PO (11:31)
[2020-02-02] MEDS ORDERED: VITAMIN B-12500 MCG PO (11:34)
[2020-02-02] MEDS ORDERED: VITAMIN D21250 MC1 PO (11:34)
[2020-02-02 11:41] VITALS: BP 136/67
--- NOTE | 2020-02-02 13:53 | NUR ---
DISCHARGE INSTRUCTIONS INCLUDING MEDICATIONS DOSING,TIMES AND INDICATIONS,F/U APPOINTMENTS AND RECOMMENDATIONS REVIEWED WITH PATIENT, SHE STATES UNDERSTANDING AND DENIES QUESTIONS/CONCERNS. ANXIOUS REGARDING PERSONAL BELONGINGS SENT HOME WITH SISTER EARLIER IN HOSPITAL STAY DESPITE BEING REVIEWED WITH PATIENT BY SENIOR INTEGRATION ARCHITECT. DENIES SI/SH/HI AT TIME OF DC. NO AUDITORY OR VISUAL HALLUCINATIONS NOTED OR REPORT. DC VIA WC ACCOMPNIED BY STAFF TO SISTER PRIVATE VEHICLE-PERSONEL BELONGINGS SEMT. DENIES C/O/CONCERNS AT TIME OF DC
--- NOTE | 2020-02-04 22:31 | D ---
[facility] [place] [address] DISCHARGE SUMMARY Name: JUAN J OROURKE Room #: 525A-A DIS IN M.R.#: [id number] Admission: 01/11/20 Attend Phys: Arturo Constantino DO Discharge: 02/02/20 Date of : 45 Report #: [id number] THIS REPORT FOR: cc: MARJORIE - No family physician/PCP FAM - No family physician/PCP Arturo Constantino DO ~ THIS REPORT FOR: //name// CC: Arturo AMADOR physician/PCP DATE OF SERVICE: 02/02/2020 INPATIENT ATTENDING PHYSICIAN: Arturo Constantino DO SENIOR ADVISOR: Bernabe Bassett MD DISCHARGE DIAGNOSES: Major neurocognitive disorder, likely due to Alzheimer's disease with behavioral disturbance, improved. Currently, it is of mild to moderate severity for the Alzheimer's dementia, schizophrenia per history. MEDICAL COMORBIDITIES: As follow, urinary tract infection status post 5-day antibiotic course of treatment; diabetes mellitus type 2 with hemoglobin A1c 7.2, on metformin 500 mg b.i.d., diabetic diet; hypertension, possible noncompliance, on losartan; history of left lower extremity DVT, currently on Eliquis. DISCHARGE PLAN: The patient is discharging officially to [facility], in [place], [place] and being picked up by her sister. Family is trying to get the patient to stay at [facility] but she is not wishing to. Additionally, the patient has a guardianship hearing in [place], [place] that is in [facility] seat on 03/28/2020. Her son, , who lives in [place], [place] is supporting that petition. diet : 1600 calorie diabetic activity: astolerated- no alcohol, no illciit drugs, nodriving- phsician form sent to [place] drivers license agency LABORATORY DATA: This admission, of specific note, CBC within normal limits. Chemistries were within normal limits except A1c of 7.2; glucose on 02/02/2020 was 136, I believe that was fasting. Vitamin D was absolutely low at 8.6 and she is getting high dose weekly replacement. Folate was 17.3, vitamin B12 was slightly low at 366. Also, syphilis serology was nonreactive for this patient. [facility] [address] [address] DISCHARGE SUMMARY Name: JUAN J OROURKE Room #: 525A-A DIS IN .R.#: [id number] Admission: 01/11/20 Attend Phys: Arturo Constantino DO Discharge: 02/02/20 Date of : 45 Report #: [id number] ADDITIONAL CONSULTANTS: Dr. Hi Pierce, neuropsychology, his finding was a major neurocognitive disorder. DISCHARGE MEDICATIONS: For this patient include apixaban 5 mg p.o. b.i.d., losartan 50 mg p.o. daily, cyanocobalamin 1000 mcg p.o. daily, ergocalciferol 50,000 International Units p.o. weekly and no other medications. Currently, the patient does not have a guardian and was unwilling to appoint a healthcare DPOA; however, she did pass the common evaluation of living skills and extensive discussion was held and the patient's stay until mid March cannot be justified given her level of functioning. REASON FOR ADMISSION: Back in December was as follows: The patient was transferred from [facility]. She had been brought there by the [place] police for trespassing. She had the fixed delusion of still having access or ownership of her house that was foreclosed. HOSPITAL COURSE: The patient was admitted to geriatric psychiatry unit. Getting the patient's consent agreement for things was rather difficult. Over time, as her hospitalization exceeded 3 weeks, the intensity of her focus on the [facility] being hers decreased. The patient was in denial of her dementia. I do think a guardian conservator is called for in this case; however, there will need to be the legal proceedings for that to be seen through. On the day of discharge, the patient was not an imminent danger, was not suicidal or homicidal. PHYSICAL EXAMINATION: VITAL SIGNS: At time of discharge, temperature 36.8, pulse 81, respirations 18, BP 136/67, O2 sat 97%. MUSCULOSKELETAL: Normal gait and station. MENTAL STATUS EXAMINATION: This is a well-developed black female, appearing stated age, wearing glasses. Attention intact. Concentration intact. Speech is normal rate, volume and tone. Thought process linear and goal directed. Thought content focused on residing in the community. No psychomotor agitation, no psychomotor retardation. Mood okay. Affect congruent and euthymic, fair range. Denied SI or HI. Denied auditory, visual, or tactile hallucinations. Memory noted to be impaired. Insight limited. Judgment limited. Fund of knowledge below average at this point. PROGNOSIS: For this patient is guarded given the legal circumstance at the time [facility] [address] [address] DISCHARGE SUMMARY Name: JUAN J OROURKE Room #: 525A-A DIS IN M.R.#: [id number] Admission: 01/11/20 Attend Phys: Arturo Constantino DO Discharge: 02/02/20 Date of : 45 Report #: [id number] of discharge; however, all efforts that can be done better situate her were exhausted. <ELECTRONICALLY SIGNED> By: Arturo Constantino DO 02/04/20 [id number] Arturo Constantino DO /nt
== END 2020-02-02 13:00 | disposition home or self-care (01) | DRG 57 ==
LOC: SBH
PROVIDERS: Internal Medicine; Nurse Practitioner Family; ADMIT Psychiatry & Neurology Psychiatry
DX: G30.9 Alzheimer's disease, unspecified (principal); F02.81 Dementia in other diseases classified elsewhere, unspecified severity, with behavioral disturbance; F20.0 Paranoid schizophrenia; N39.0 Urinary tract infection, site not specified; E11.9 Type 2 diabetes mellitus without complications; I10 Essential (primary) hypertension; Z60.2 Problems related to living alone; Z86.718 Personal history of other venous thrombosis and embolism; Z91.14 Patient's other noncompliance with medication regimen; Z79.84 Long term (current) use of oral hypoglycemic drugs; Z79.899 Other long term (current) drug therapy; Z79.01 Long term (current) use of anticoagulants
CPT/HCPCS: 10880

== ENCOUNTER 2020-05-05 23:11 | Inpatient (IN) | payer OTHER ==
[~2020-05-05] VITALS: Ht 167.6 cm; Wt 76.8 kg
[~2020-05-05 23:11] MED LIST: CIPRO500 M1 PO; COZAAR 50 MG TA50 M1 PO; ELIQUIS5 MG PO; LOSARTAN POTASS50 MG PO; VITAMIN B-12500 MCG PO; VITAMIN D21250 MC1 PO
[2020-05-06 00:30] VITALS: BP 165/84
[2020-05-06] MEDS ORDERED: XARELTO15 MG PO (04:46)
[2020-05-06 07:56] VITALS: BP 146/64
[2020-05-06 20:50] VITALS: BP 129/92
[2020-05-06 20:52] VITALS: BP 157/78
[2020-05-07 08:21] VITALS: BP 150/74
[2020-05-07 11:04] VITALS: BP 150/74
--- NOTE | 2020-05-07 11:52 | EKG ---
[facility] [place] [address] [address] [place] [address] ELECTROCARDIOGRAM REPORT Name: JUAN J OROURKE Room #: [facility] ADM IN M.R.#: [id number] Admission: 05/05/20 Attend Phys: Sol Clark MD Discharge: Date of : 45 Report #: [id number] THIS REPORT FOR: cc: MARJORIE - No family physician/PCP FAM - No family physician/PCP Lei Del Real MD ~ THIS REPORT FOR: //name// [facility] Test Date: 2020-05-07 Test Time: 08:03:24 Pat Name: JUAN J OROURKE Department: Room: [facility] A Gender: F Loom Operator: Kateryna AVELAR : 1945 Requested By: Sol Clark Order Number: [id number] MD: Lei Del Real Measurements Intervals [place] Rate: 69 P: 52 OR: 141 QRS: -35 QRSD: 83 T: 23 QT: 434 QTc: 465 Interpretive Statements Sinus rhythm Left axis deviation No previous ECG available for comparison Electronically Signed On 05-07-2020 11:52:02 CDT by Lei Del Real [email or web address] <ELECTRONICALLY SIGNED> By: Lei Del Real MD 05/07/20 1152 0803 08 Lei Del Real MD /STEFAN
[2020-05-07 19:58] VITALS: BP 117/55
[2020-05-07 22:00] VITALS: BP 117/55
[2020-05-08 09:06] VITALS: BP 148/71
[2020-05-08 20:05] VITALS: BP 156/81
[2020-05-09 07:50] VITALS: BP 119/96
[2020-05-10 11:35] VITALS: BP 147/62
[2020-05-10 19:24] VITALS: BP 129/54
[2020-05-11 09:23] VITALS: BP 110/65
[2020-05-11 20:02] VITALS: BP 137/60
[2020-05-11 20:30] VITALS: BP 137/60
[2020-05-12 16:25] VITALS: BP 104/56
[2020-05-12 18:13] VITALS: BP 104/56
[2020-05-12 19:44] VITALS: BP 108/55
[2020-05-12 20:50] VITALS: BP 108/55
[2020-05-13 07:50] VITALS: BP 119/53
[2020-05-13 08:30] VITALS: BP 119/53
[2020-05-13 19:22] VITALS: BP 133/54
[2020-05-13 22:00] VITALS: BP 133/54
[2020-05-14 07:53] VITALS: BP 133/62
[2020-05-14 11:40] LABS: ABSOLUTE NEUTROPHILS 4.3 thou/uL (1.4-8.2); BASOPHILS 0.7 % (0.0-2.0); EOSINOPHILS 2.4 % (0.0-3.0); HEMATOCRIT 40.8 % (37.0-47.0); HEMOGLOBIN 13.3 gm/dL (12.0-15.0); LYMPHOCYTES 32.4 % (24.0-44.0); MCH 29.4 pg (26.0-34.0); MCHC 32.6 g/dL (28.0-37.0); MCV 90.1 fL (80.0-100.0); MONOCYTES 9.3 % (1.0-8.0); PLATELET COUNT 184 thou/uL (150-400); POLYS 55.2 % (36.0-66.0); RBC 4.53 mil/uL (4.20-5.00); RDW 15.5 % (10.5-14.5); WBC 7.7 thou/uL (4.0-11.0)
[2020-05-14 11:59] LABS: ALBUMIN 3.4 g/dL (3.4-5.0); MAGNESIUM 2.2 mg/dL (1.8-2.4); TOTAL BILIRUBIN 0.7 mg/dL (0.2-1.0); TOTAL PROTEIN 7.3 g/dL (6.4-8.2)
[2020-05-14 19:33] VITALS: BP 150/70
[2020-05-15 05:36] LABS: GLYCOHEMOGLOBIN (HGB A1C) 7.2 % (4.8-5.6)
[2020-05-15 09:00] VITALS: BP 126/59
[2020-05-15 13:18] VITALS: BP 126/59
[2020-05-15 19:58] VITALS: BP 157/76
[2020-05-16 01:56] VITALS: BP 157/76
[2020-05-16 07:45] VITALS: BP 108/52
[2020-05-16 08:40] VITALS: BP 108/52
[2020-05-16 19:42] VITALS: BP 133/64
[2020-05-16 22:00] VITALS: BP 133/64
[2020-05-17 08:00] VITALS: BP 132/76
[2020-05-17 09:29] VITALS: BP 132/76
[2020-05-17 19:31] VITALS: BP 140/66
[2020-05-18 09:03] VITALS: BP 117/61
[2020-05-18 12:34] VITALS: BP 117/61
[2020-05-18 19:09] VITALS: BP 117/88
[2020-05-18 22:00] VITALS: BP 117/88
[2020-05-19 07:30] VITALS: BP 108/63
[2020-05-19 20:07] VITALS: BP 144/74
[2020-05-20 09:06] VITALS: BP 135/65
[2020-05-20 19:30] VITALS: BP 122/56
[2020-05-21 13:36] VITALS: BP 125/67
[2020-05-21 19:24] VITALS: BP 125/83
[2020-05-22 06:45] LABS: CALCIUM 8.5 mg/dL (8.5-10.1); CREATININE 0.9 mg/dL (0.6-1.0); POTASSIUM 3.7 mmol/L (3.5-5.1)
[2020-05-22 08:51] VITALS: BP 141/63
[2020-05-22 19:27] VITALS: BP 121/53
[2020-05-23 07:50] VITALS: BP 128/61
[2020-05-23 19:30] VITALS: BP 113/52
[2020-05-24 08:58] VITALS: BP 118/69
[2020-05-24 19:35] VITALS: BP 112/50
[2020-05-24 23:42] VITALS: BP 112/50
[2020-05-25 15:03] VITALS: BP 112/50
[2020-05-25 17:13] VITALS: BP 117/62
[2020-05-25 22:00] VITALS: BP 117/62
[2020-05-26 07:53] VITALS: BP 102/61
[2020-05-26 12:49] VITALS: BP 102/61
[2020-05-26 19:24] VITALS: BP 139/61
[2020-05-26 22:00] VITALS: BP 139/61
[2020-05-27 06:38] VITALS: BP 139/69
[2020-05-27 08:00] VITALS: BP 136/78
[2020-05-27 09:51] VITALS: BP 139/69
[2020-05-27] MEDS ORDERED: XARELTO20 MG PO (12:39)
[2020-05-27] MEDS ORDERED: COZAAR 50 MG TA50 M1 PO (12:40)
[2020-05-27] MEDS ORDERED: OLANZAPINE10 M2 IM (12:40)
[2020-05-27] MEDS ORDERED: SEROQUEL 100 M100 M1 PO (12:41)
[2020-05-27] MEDS ORDERED: VITAMIN D325 MC1 PO (12:42)
[2020-05-27] MEDS ORDERED: GLUCOPHAGE500 MG PO (12:42)
== END 2020-05-27 14:30 | DRG 57 ==
LOC: SBH
PROVIDERS: Hospitalist; Internal Medicine; ADMIT Psychiatry & Neurology Psychiatry; ATTEND Psychiatry & Neurology Psychiatry
DX: G30.9 Alzheimer's disease, unspecified (principal); F02.81 Dementia in other diseases classified elsewhere, unspecified severity, with behavioral disturbance; D68.59 Other primary thrombophilia; F01.51 Vascular dementia, unspecified severity, with behavioral disturbance; F20.9 Schizophrenia, unspecified; I10 Essential (primary) hypertension; E11.9 Type 2 diabetes mellitus without complications; E55.9 Vitamin D deficiency, unspecified; E53.8 Deficiency of other specified B group vitamins; Z86.718 Personal history of other venous thrombosis and embolism; Z91.14 Patient's other noncompliance with medication regimen; Z03.818 Encounter for observation for suspected exposure to other biological agents ruled out; Z79.01 Long term (current) use of anticoagulants; Z79.899 Other long term (current) drug therapy
CPT/HCPCS: 10880